=== PATIENT | female | born 1960 | race Caucasian/White ===

== ENCOUNTER → 2016-08-12 | Outpatient (CLI) | payer BC | LOC: RAD 10:21 | PROVIDERS: ATTEND Physician Assistant Medical | DX: R10.12 Left upper quadrant pain (principal); R10.13 Epigastric pain; K80.20 Calculus of gallbladder without cholecystitis without obstruction | CPT/HCPCS: 76700 ==

== ENCOUNTER → 2016-08-17 | Outpatient (CLI) | payer BC ==
[2016-08-17 22:17] LABS: MEAN CORPUSCULAR HEMOGLOBIN 30.2 PG (26.0-34.0); MEAN CORPUSCULAR HGB CONC 34.7 g/dL (31.0-37.0); MEAN PLATELET VOLUME 11.9 FL (6.0-9.5); WHITE BLOOD COUNT 11.9 10^3uL (4.0-11.0)
[2016-08-17 22:24] LABS: ALBUMIN 4.4 g/dL (3.4-5.0); ANION GAP 13.3 MEQ/L (3-15); CALCULATED IONIZED CALCIUM 4.5 mg/dL (3.8-4.6)
== END ==
LOC: LAB 18:26
PROVIDERS: ATTEND Family Medicine
DX: R10.12 Left upper quadrant pain (principal)
CPT/HCPCS: 36415; 80053; 82150; 83690; 84443; 85027; 86677

== ENCOUNTER 2016-09-04 09:08 | Day surgery (SDC) | payer BC ==
[~2016-09-04] VITALS: Ht 162.6 cm; Wt 66.0 kg
[~2016-09-04 09:08] MED LIST: LACTATED RINGERS 1,000 ML IV SCH; LIDOCAINE 4% TOPICAL 4.5 ML SYR ONE; SIMETHICONE 40 MG/0.6 ML (MYLICON DROPS) ORAL SYRINGE ONE; SODIUM CHLORIDE FLUSH 3 ML SYR IV PRN
[2016-09-04 09:15] VITALS: BP 130/60
[2016-09-04] MEDS ORDERED: PROPOFOL 20 ML IV ONE ×3 (09:50→11:32)
[2016-09-04] MEDS ORDERED: ALFENTANIL 500 MCG/ML (ALFENTA) 5 ML AMP IV ONE (09:50)
[2016-09-04] MEDS ORDERED: MIDAZOLAM 2 MG/2 ML (VERSED) VIAL ONE (09:50)
[2016-09-04] MEDS ORDERED: GLUCAGON EMERGENCY 1 MG/KIT ONE ×2 (11:17)
[2016-09-04 12:03] VITALS: BP 136/82
[2016-09-04 12:35] VITALS: BP 143/71
[2016-09-04 13:04] VITALS: BP 122/67
--- NOTE | 2016-09-04 13:30 | NUR ---
PT TO XRAY VIA WHEELCHAIR FOR BARIUM ENEMA.
--- NOTE | 2016-09-04 14:49 | NUR ---
PT RETURNS TO ASC VIA WHEELCHAIR. FOOD AND DRINK PROVIDED.
[2016-09-04 14:52] VITALS: BP 137/56
[2016-09-04 15:02] VITALS: BP_SYST 137; BP_SYST 157; BP_DIAS 56; BP_DIAS 80
== END 2016-09-04 15:09 | disposition home or self-care (01) ==
LOC: ASC 09:08
PROVIDERS: ATTEND Surgery
DX: R10.12 Left upper quadrant pain (principal); K57.30 Diverticulosis of large intestine without perforation or abscess without bleeding; K29.80 Duodenitis without bleeding; K29.30 Chronic superficial gastritis without bleeding; R13.10 Dysphagia, unspecified; K21.9 Gastro-esophageal reflux disease without esophagitis; F17.210 Nicotine dependence, cigarettes, uncomplicated
CPT/HCPCS: 43239; 45330; 74270; J1610; J2250; J7120

== ENCOUNTER → 2016-09-10 | Outpatient (CLI) | payer BC | LOC: RAD 09:57 | PROVIDERS: ATTEND Family Medicine | DX: Z12.31 Encounter for screening mammogram for malignant neoplasm of breast (principal) ==